=== PATIENT | male | born 1970 | race Caucasian/White ===

== ENCOUNTER 2017-02-16 11:02 | Emergency (ER) | payer MEDICAID ==
[2017-02-16 11:08] VITALS: TEMP 97.5
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
[2017-02-16] MEDS ORDERED: OXYCODONE/APAP 5/325MG PREPACK#4 BTL TAKEHOME ONE (13:09)
[2017-02-16] MEDS ORDERED: CYCLOBENZAPRINE 10MG PREPACK#3 BTL TAKEHOME ONE (13:09)
[2017-02-16 13:45] VITALS: BP 132/85; PULSE 62; RESP 18; O2SAT 96
== END 2017-02-16 13:43 | disposition home or self-care (01) ==
DX: S76.012A Strain of muscle, fascia and tendon of left hip, initial encounter (principal); S70.02XA Contusion of left hip, initial encounter; W00.0XXA Fall on same level due to ice and snow, initial encounter; Y92.481 Parking lot as the place of occurrence of the external cause; Y99.8 Other external cause status; Y93.89 Activity, other specified